=== PATIENT | female | born 1975 | race Asian ===

== ENCOUNTER 2017-08-31 13:28 | Outpatient (CLI) | payer OTHER | END 2017-08-31 19:02 | disposition home or self-care (01) | LOC: RAD 13:28 | DX: S63.642A Sprain of metacarpophalangeal joint of left thumb, initial encounter (principal) ==

== ENCOUNTER 2017-09-06 09:18 | Outpatient (CLI) | payer OTHER | END 2017-09-06 10:30 | disposition home or self-care (01) | LOC: MRI 09:18 | DX: S62.512A Displaced fracture of proximal phalanx of left thumb, initial encounter for closed fracture (principal) ==